=== PATIENT | female | born 1950 | race Caucasian/White ===

== ENCOUNTER 2021-10-18 06:05 | Day surgery (SDC) | payer SELFPAY ==
[2021-10-12 12:04] VITALS: BMI 28.5
[2021-10-18] MEDS ORDERED: NITROGLYCERIN 2% OINTMENT - 1GM PACKET TD ONE ×2 (07:20→16:07)
[2021-10-18] MEDS ORDERED: BACITRACIN/POLYMYXIN OPH OINT 3.5 GM TUBE ONE (07:20)
[2021-10-18] MEDS ORDERED: BACITRACIN 15 GM TUBE TOPICAL OINTMENT ONE (07:21)
[2021-10-18] MEDS ORDERED: LIDOCAINE 1%/EPI 1:100000 (20 ML MULTI DOSE VIAL) ONE (07:21)
[2021-10-18] MEDS ORDERED: LIDOCAINE HCL/PF 2% SDV 5ML VIAL ONE (07:40)
[2021-10-18] MEDS ORDERED: fentaNYL CITRATE 250 MCG/5 ML VIAL ONE (07:40)
[2021-10-18] MEDS ORDERED: ROCURONIUM BROMIDE 50 MG/5 ML SYRINGE ONE (07:41)
[2021-10-18] MEDS ORDERED: MIDAZOLAM HCL 2 MG/2 ML SINGLE DOSE VIAL ONE (07:41)
[2021-10-18] MEDS ORDERED: DEXMEDETOMIDINE HCL 200 MCG/2 ML IVPB ONE (07:57)
[2021-10-18] MEDS ORDERED: KETAMINE HCL 200 MG/20 ML VIAL ONE (08:57)
[2021-10-18] MEDS ORDERED: ceFAZolin SODIUM 1 GM VIAL ONE ×4 (10:22→21:01)
[2021-10-18] MEDS ORDERED: ONDANSETRON 4 MG/2 ML VIAL ONE ×2 (10:22→15:06)
[2021-10-18] MEDS ORDERED: GLYCOPYRROLATE 0.2 MG/1 ML VIAL ONE ×2 (10:22→15:06)
[2021-10-18] MEDS ORDERED: MINERAL OIL/PETROLATUM,WHITE 3.5 GM TUBE ONE (10:22)
[2021-10-18] MEDS ORDERED: DEXAMETHASONE SOD PHOSPHATE 4 MG/1 ML VIAL ONE (10:22)
[2021-10-18] MEDS ORDERED: BSS (NA/CA/MG/K) BALANCED SALT SOLUTION OPHTH SOLN 15 ML BOTTLE ONE (11:17)
[2021-10-18] MEDS ORDERED: HYDROmorphone HCL/PF 1 MG/ML VIAL ONE (12:15)
[2021-10-18] MEDS ORDERED: PROMETHAZINE HCL 25 MG/1 ML VIAL IVPUSH PRN (12:59)
[2021-10-18] MEDS ORDERED: ONDANSETRON 4 MG/2 ML VIAL IVPUSH PRN (12:59)
[2021-10-18] MEDS ORDERED: oxyCODONE HCL 5 MG TABLET PO PRN ×3 (12:59→17:11)
[2021-10-18] MEDS ORDERED: LACTATED RINGERS SOLUTION 1,000 ML IV SCH (13:00)
[2021-10-18] MEDS ORDERED: ACETAMINOPHEN INJECTION 100 ML IVPB ONE (13:04)
[2021-10-18] MEDS ORDERED: NEOSTIGMINE METHYLSULFATE 0.5 MG/1 ML - 10 ML MDV ONE (13:06)
[2021-10-18] MEDS ORDERED: TRANEXAMIC ACID 1000 MG/10 ML VIAL ONE ×2 (13:46→14:08)
[2021-10-18] MEDS ORDERED: TRIAMCINOLONE ACET 40MG/1ML VIAL ONE (16:18)
[2021-10-18] MEDS ORDERED: ONDANSETRON 4 MG/2 ML VIAL IVPB PRN (17:11)
[2021-10-18] MEDS ORDERED: cloNIDine HCL 0.1 MG TABLET PO PRN (17:19)
[2021-10-18] MEDS ORDERED: SODIUM CHLORIDE 0.45% 1,000 ML IV SCH (17:30)
[2021-10-18] MEDS ORDERED: DEXTROSE 5%-WATER - 50 ML IVPB ONE (21:01)
[2021-10-18] MEDS: CEFAZOLIN 1 GM in DEXTROSE 5%-WATER - 1 GM/50 ML IVPB IVPB SCH (21:22)
[2021-10-18] MEDS: SOTALOL HCL 80 MG TABLET (FP) PO SCH (21:48)
[2021-10-19] MEDS ORDERED: ceFAZolin SODIUM 1 GM VIAL ONE ×2 (00:35→08:28)
[2021-10-19] MEDS ORDERED: DEXTROSE 5%-WATER - 50 ML IVPB ONE ×2 (00:36→08:28)
[2021-10-19] MEDS ORDERED: ACETAMINOPHEN 1000 MG/100 ML BAG IVPB ONE (01:02)
[2021-10-19] MEDS: CEFAZOLIN 1 GM in DEXTROSE 5%-WATER - 1 GM/50 ML IVPB IVPB SCH ×2 (03:00→08:30)
[2021-10-19] MEDS ORDERED: LEVOTHYROXINE NA 112 MCG TABLET (FP) PO SCH (07:00)
[2021-10-19] MEDS ORDERED: morphine SULFATE 4 MG/ML VIAL IVPUSH PRN (07:32)
[2021-10-19] MEDS ORDERED: diazePAM 5 MG TABLET PO ONE (08:30)
[2021-10-19 08:46] VITALS: BP 113/65; PULSE 58; TEMP 98
[2021-10-19] MEDS: SOTALOL HCL 80 MG TABLET (FP) PO SCH (09:12)
[2021-10-19] MEDS ORDERED: SPIRONOLACTONE 25 MG TABLET PO SCH (10:00)
[2021-10-19] MEDS ORDERED: POTASSIUM CHLORIDE TABS 10 MEQ TABLET.ER (FP) PO SCH (10:00)
[2021-10-19] MEDS ORDERED: RAMIPRIL 5 MG CAPSULE PO SCH (10:00)
== END 2021-10-19 12:00 | disposition home or self-care (01) ==
LOC: FASUSAT 06:05 → FM/S 17:11 → FASUSAT 10-19 12:00
PROVIDERS: ATTEND Plastic Surgery
PROC: 080P0ZZ Alteration of Left Upper Eyelid, Open Approach (ICD-10-PCS; 2021-10-18)
PROC: 080Q0ZZ Alteration of Right Lower Eyelid, Open Approach (ICD-10-PCS; 2021-10-18)
PROC: 09020ZZ Alteration of Bilateral External Ear, Open Approach (ICD-10-PCS; 2021-10-18)
PROC: 0W020ZZ Alteration of Face, Open Approach (ICD-10-PCS; 2021-10-18)
PROC: 0W060ZZ Alteration of Neck, Open Approach (ICD-10-PCS; 2021-10-18)
PROC: 080R0ZZ Alteration of Left Lower Eyelid, Open Approach (ICD-10-PCS; principal; 2021-10-18 09:23)
PROC: 080N0ZZ Alteration of Right Upper Eyelid, Open Approach (ICD-10-PCS; 2021-10-18 09:23)
DX: Z41.1 Encounter for cosmetic surgery (principal)
CPT/HCPCS: 94760